=== PATIENT | male | born 1980 | race Caucasian/White ===

== ENCOUNTER 2016-12-27 06:29 | Outpatient (CLI) | payer MEDICAID ==
[2015-10-22 11:18] VITALS: BMI 30.7
[~2016-12-27 06:29] MED LIST: HYDROCODON-ACE1 EAC7 PO; IBUPROFEN600 MG PO; KLONOPIN1 MG PO; PROZAC20 MG PO; TRAZODONE HCL150 MG PO
[2016-12-27 07:23] LABS: HEMATOCRIT 41.3 % (42.0-54.0); HEMOGLOBIN 12.3 g/dL (13.5-17.5); MCH 21.1 pg (26.0-34.0); MCHC 29.8 g/dL (31.0-37.0); MCV 70.8 fL (80.0-100.0); RBC 5.83 10x6/uL (4.20-6.10); RDW 16.8 % (11.5-14.5); WBC 5.1 10x3/uL (4.8-10.8)
--- NOTE | 2016-12-27 16:01 | NUR ---
0635-PATIENT PLACED IN ROOM, EXPLAINED SURGERY IS NOT SCHEDULED UNTIL 1130. 1000-PATIENT INFORMED DR WOODS HAS HAD AN URGENT/EMERGENT CASE ADDED AND HE WILL BE DELAYED UNTIL 3PM OR SO. 1100-PATIENT UPSET SAYS HE WILL LEAVE IF NOT GOING TO SURGERY AT 1130. 1230-PATIENT LEAVES ROOM WITH FAMILY. NO WAITING FOR SURGERY. 1250-PATIENT AND RETURNS TO THE DESK. CANT FIND HER WALLET. STATES SHE TALKED TO SOMEONE AND SHE WAS GOING TO PUT IT AT THE DESK. NO WALLET AT THE DESK, BREAK-ROOM, HOUSEKEEPING CART/HOUSEKEEPING, PATIENT ROOM AND DIRTY LINEN ALSO SEARCHED. OR LOST AND FOUND. NOT AT THE DESK, NOT IN THE ROOM
== END 2016-12-27 11:23 | disposition home or self-care (01) | DRG 395 ==
LOC: D.SDCHOLD 06:29 → D.OPS 06:29 → EDSTATUS 08:00 → D.SDCHOLD 08:00 → D.OPS 11:23 → D.SDCHOLD 11:30
PROVIDERS: Anesthesiology
DX: K63.5 Polyp of colon (principal); J45.909 Unspecified asthma, uncomplicated; F41.9 Anxiety disorder, unspecified; Z53.29 Procedure and treatment not carried out because of patient's decision for other reasons

== ENCOUNTER 2018-11-04 07:42 | Emergency (ER) | payer MEDICAID ==
[~2018-11-04] VITALS: Ht 167.6 cm; Wt 78.6 kg
[2018-11-04] MEDS ORDERED: ROBAXIN500 MG PO (07:47)
[2018-11-04 08:18] LABS: BASOPHILS 0.2 % (0-2); EOSINOPHILS 0.2 % (0-7); HEMOGLOBIN 15.9 g/dL (13.5-17.5); IMMATURE GRANULOCYTES 0.6 % (0-5); LYMPHOCYTES 10.5 % (15-50); MCH 32.1 pg (26.0-34.0); MCHC 35.3 g/dL (31.0-37.0); MCV 90.9 fL (80.0-100.0); MEAN PLATELET VOLUME 10.1 fL (7.4-10.4); MONOCYTES 5.9 % (2-11); NEUTROPHILS 82.6 % (40-80); RBC 4.95 10x6/uL (4.20-6.10); RDW 13.4 % (11.5-14.5); WBC 18.5 10x3/uL (4.8-10.8)
[2018-11-04 08:21] LABS: APTT 33.6 SECONDS (22.8-39.4); INR 1.17 (0.85-1.17); PROTIME 14.4 SECONDS (11.6-15.0)
[2018-11-04 08:22] LABS: ALBUMIN 2.9 g/dL (3.4-5.0); ALKALINE PHOSPHATASE 113 U/L (46-116); ALT (SGPT) 28 U/L (10-68); BILIRUBIN - TOTAL 0.69 mg/dL (0.2-1.3); CALC OSMOLALITY 274 mosm/kg (275-300); CALCIUM 8.7 mg/dL (8.5-10.1); CARBON DIOXIDE 22.4 mmol/L (21.0-32.0); CHLORIDE - SERUM 103 mmol/L (98-107); GLUCOSE 125 mg/dL (74-106); POTASSIUM - SERUM 4.1 mmol/L (3.5-5.1); PROTEIN - SERUM 7.5 g/dL (6.4-8.2); SODIUM 138 mmol/L (136-145); UREA NITROGEN 8 mg/dL (7-18); eGFR NON AFRICAN AMERICAN 90 mL/min (90-120)
[2018-11-04 08:29] LABS: PLATELET COUNT 398 10x3/uL (130-400)
[2018-11-04 08:33] LABS: AMYLASE - SERUM 85 U/L (25-115); CKMB 0.5 U/L (0.0-3.6); CREATINE KINASE 24 UL (21-232); LIPASE 272 U/L (73-393); TROPONIN-I < 0.017 ng/mL (0.000-0.060)
[2018-11-04 15:05] LABS: APPEARANCE CLEAR (CLEAR); BILIRUBIN NEGATIVE (NEGATIVE); COLOR YELLOW (YELLOW); GLUCOSE NEGATIVE (NEGATIVE); KETONE NEGATIVE (NEGATIVE); NITRITE NEGATIVE (NEGATIVE); PROTEIN NEGATIVE (NEGATIVE); UROBILINOGEN NORMAL (NORMAL)
== END 2018-11-04 15:24 | disposition other institution (70) ==
LOC: D.ER 07:42
PROVIDERS: Family Medicine
DX: G89.18 Other acute postprocedural pain (principal); K52.9 Noninfective gastroenteritis and colitis, unspecified; K65.1 Peritoneal abscess; D72.819 Decreased white blood cell count, unspecified; R11.2 Nausea with vomiting, unspecified; C78.7 Secondary malignant neoplasm of liver and intrahepatic bile duct

== ENCOUNTER 2018-11-16 16:54 | Emergency (ER) | payer MEDICAID ==
[~2018-11-16] VITALS: Ht 167.6 cm; Wt 68.2 kg
[2018-11-16 16:54] VITALS: Ht 167.6 cm; Wt 68.2 kg
[~2018-11-16 16:54] MED LIST changes: +ROBAXIN500 MG PO
[2018-11-16 17:24] LABS: BASOPHILS 0.1 % (0-2); EOSINOPHILS 0.6 % (0-7); HEMATOCRIT 45.9 % (42.0-54.0); HEMOGLOBIN 15.8 g/dL (13.5-17.5); IMMATURE GRANULOCYTES 0.4 % (0-5); LYMPHOCYTES 16.7 % (15-50); MCH 32.1 pg (26.0-34.0); MCHC 34.4 g/dL (31.0-37.0); MCV 93.3 fL (80.0-100.0); MEAN PLATELET VOLUME 10.6 fL (7.4-10.4); MONOCYTES 5.9 % (2-11); NEUTROPHILS 76.3 % (40-80); PLATELET COUNT 339 10x3/uL (130-400); RBC 4.92 10x6/uL (4.20-6.10); RDW 14.1 % (11.5-14.5); WBC 16.2 10x3/uL (4.8-10.8)
[2018-11-16 17:38] LABS: ALBUMIN 3.3 g/dL (3.4-5.0); ANION GAP 16.9 mmol/L (8-16); BILIRUBIN - TOTAL 0.72 mg/dL (0.2-1.3); CALCIUM 9.1 mg/dL (8.5-10.1); CARBON DIOXIDE 24.5 mmol/L (21.0-32.0); CREATININE - SERUM 1.3 mg/dL (0.6-1.3); POTASSIUM - SERUM 4.4 mmol/L (3.5-5.1); PROTEIN - SERUM 7.8 g/dL (6.4-8.2)
[2018-11-16 18:54] LABS: APPEARANCE CLEAR (CLEAR); BILIRUBIN NEGATIVE (NEGATIVE); COLOR YELLOW (YELLOW); GLUCOSE NEGATIVE (NEGATIVE); KETONE NEGATIVE (NEGATIVE); NITRITE NEGATIVE (NEGATIVE); PROTEIN NEGATIVE (NEGATIVE); SPECIFIC GRAVITY 1.015 (1.005-1.020); UROBILINOGEN NORMAL (NORMAL)
[2018-11-16 21:55] VITALS: BP 139/86
== END 2018-11-16 21:55 | disposition short-term general hospital (02) ==
LOC: D.ER 16:54
PROVIDERS: Emergency Medicine
DX: R10.9 Unspecified abdominal pain (principal); Z85.038 Personal history of other malignant neoplasm of large intestine; F17.210 Nicotine dependence, cigarettes, uncomplicated

== ENCOUNTER 2019-05-05 19:51 | Emergency (ER) | payer OTHER ==
[~2019-05-05] VITALS: Ht 167.6 cm; Wt 77.3 kg
[2019-05-05 19:55] VITALS: BP 132/85; Ht 167.6 cm; Wt 77.3 kg
[2019-05-05] MEDS ORDERED: MINIPRESS2 MG PO (19:58)
[2019-05-05] MEDS ORDERED: ZYPREXA10 MG PO (19:58)
[2019-05-05] MEDS ORDERED: HYDROXYZINE HCL10 MG PO (19:59)
[2019-05-05] MEDS ORDERED: AZITHROMYCIN500 MG PO (20:28)
== END 2019-05-05 21:21 | disposition home or self-care (01) ==
LOC: D.ER 19:51
DX: R50.9 Fever, unspecified (principal); R09.81 Nasal congestion; R07.9 Chest pain, unspecified; J02.9 Acute pharyngitis, unspecified; R10.9 Unspecified abdominal pain; M25.512 Pain in left shoulder; M25.511 Pain in right shoulder; Z72.0 Tobacco use

== ENCOUNTER 2019-06-30 17:25 | Emergency (ER) | payer OTHER ==
[~2019-06-30] VITALS: Ht 167.6 cm; Wt 87.7 kg
[~2019-06-30 17:25] MED LIST changes: +AZITHROMYCIN500 MG PO; +HYDROXYZINE HCL10 MG PO; +MINIPRESS2 MG PO; +ZYPREXA10 MG PO
[2019-06-30 17:34] VITALS: Ht 167.6 cm; Wt 87.7 kg
[2019-06-30] MEDS ORDERED: SEROQUEL200 MG PO (17:37)
[2019-06-30 18:12] LABS: HEMATOCRIT 52.6 % (42.0-54.0); HEMOGLOBIN 18.4 g/dL (13.5-17.5); MCV 91.5 fL (80.0-100.0); MEAN PLATELET VOLUME 10.1 fL (7.4-10.4); NEUTROPHILS 58.6 % (40-80); PLATELET COUNT 180 10x3/uL (130-400); RBC 5.75 10x6/uL (4.20-6.10); RDW 13.9 % (11.5-14.5); WBC 6.9 10x3/uL (4.8-10.8)
[2019-06-30 18:16] LABS: CALC OSMOLALITY 275 mosm/kg (275-300); CALCIUM 8.8 mg/dL (8.5-10.1); CARBON DIOXIDE 29.3 mmol/L (21.0-32.0); CHLORIDE - SERUM 104 mmol/L (98-107); GLUCOSE 89 mg/dL (74-106); POTASSIUM - SERUM 4.2 mmol/L (3.5-5.1); SODIUM 139 mmol/L (136-145); UREA NITROGEN 11 mg/dL (7-18); eGFR NON AFRICAN AMERICAN 89 mL/min (90-120)
[2019-06-30 18:25] LABS: ALKALINE PHOSPHATASE 92 U/L (30-120); ALT (SGPT) 30 U/L (10-68); AMYLASE - SERUM 89 U/L (25-115); BILIRUBIN - TOTAL 0.87 mg/dL (0.2-1.3); LIPASE 214 U/L (73-393); PROTEIN - SERUM 7.1 g/dL (6.4-8.2)
[2019-06-30 18:29] LABS: TROPONIN-I < 0.017 ng/mL (0.000-0.060)
[2019-06-30 18:33] LABS: BILIRUBIN NEGATIVE (NEGATIVE); GLUCOSE NEGATIVE (NEGATIVE); KETONE NEGATIVE (NEGATIVE); NITRITE NEGATIVE (NEGATIVE); UROBILINOGEN NORMAL (NORMAL)
[2019-06-30 20:14] VITALS: BP 130/86
== END 2019-06-30 20:14 | disposition home or self-care (01) ==
LOC: D.ER 17:25
PROVIDERS: Family Medicine
DX: R10.31 Right lower quadrant pain (principal)